=== PATIENT | female | born 1960 | race Caucasian/White ===

== ENCOUNTER 2018-12-07 00:40 | Observation (INO) ==
[2018-12-07] MEDS ORDERED: Morphine Sulfate 2 MG/ML SYRINGE IVP ONE (01:32)
[2018-12-07] MEDS ORDERED: Ondansetron 4 MG/2 ML VIAL IVP ONE ×2 (01:32→04:45)
[2018-12-07] MEDS ORDERED: Ipratropium/Albuterol Neb 3 ML IH ONE (01:33)
[2018-12-07] MEDS ORDERED: 0.9 % Sodium Chloride 1,000 ML IVC ONE (02:23)
[2018-12-07] MEDS ORDERED: 0.9 % Sodium Chloride 1,000 ML ONE (02:25)
[2018-12-07 02:33] LABS: Basophils # 0.1 K/mcL (0.0-0.2); Basophils % 0.5 %; Eosinophils # 0.1 K/mcL (0.0-0.6); Eosinophils % 0.4 %; Hematocrit 40.8 % (35.3-44.9); Hemoglobin 13.9 g/dL (11.5-15.4); Immature Granulocytes % 0.6 % (0-4); Lymphocytes # 1.9 K/mcL (0.6-4.6); Lymphocytes % 12.9 %; Mean Corpuscular HGB Conc 34.1 g/dL (31.6-35.5); Mean Corpuscular Hemoglobin 31.4 pg (28.0-33.3); Mean Corpuscular Volume 92.3 fL (83.0-100.0); Mean Platelet Volume 10.7 fL (9.4-12.4); Monocytes # 0.9 K/mcL (0.0-1.3); Monocytes % 6.2 %; Platelet Count 298 K/mcL (140-400); Red Blood Count 4.42 M/mcL (3.82-4.97); Red Cell Distribution Width 11.9 % (11.5-14.5); Segmented Neutrophils % 79.4 %; White Blood Count 15.1 K/mcL (4.3-11.1)
[2018-12-07 02:45] LABS: Alanine Aminotransferase 14 Units/L (7-52); Albumin 4.7 g/dL (3.5-5.7); Albumin/Globulin Ratio 1.8 (1.1-2.2); Alkaline Phosphatase 50 Units/L (34-104); Aspartate Amino Transferase 18 Units/L (13-39); BUN/Creatinine Ratio 11 (6-26); Bilirubin,Direct 0.1 mg/dL (0.0-0.2); Bilirubin,Indirect 0.3 mg/dL (0.0-1.2); Bilirubin,Total 0.4 mg/dL (0.3-1.0); Blood Urea Nitrogen 10 mg/dL (6-20); Calcium 10.2 mg/dL (8.6-10.3); Carbon Dioxide 24 mEq/L (23-29); Chloride 99 mEq/L (98-107); Globulin 2.6 g/dL (2.4-3.5); Glucose 115 mg/dL (70-105); Lipase 5 Units/L (11-82); Osmolality,Calculated 274 (280-300); Potassium 3.5 mEq/L (3.5-5.1); Sodium 132 mEq/L (136-145); Total Protein 7.3 g/dL (6.4-8.9); eGFR For African Americans > 60 (> 60); eGFR For Non-African Americans > 60 (> 60)
--- NOTE | 2018-12-07 03:22 | Emergency Department Note ---
Disposition Clinical Impression: Constipation Qualifiers: Constipation type: unspecified constipation type Qualified Code(s): K59.00 - Constipation, unspecified Nausea and vomiting Qualifiers: Vomiting type: unspecified Vomiting Intractability: non-intractable Qualified Code(s): R11.2 - Nausea with vomiting, unspecified Disposition: Admitted As Inpatient Condition: Fair Referrals: Fide Painting MD [Primary Care Provider] - Forms: ED Satisfaction Letter, Work/School Release Time of Disposition: 06:27 General Adult HPI - General Chief complaint: ED Abdominal Pain Stated complaint: abd pain/jordan/vomited x2 Time Seen by Provider: 12/07/18 00:57 Source: patient, EMS Mode of arrival: EMS Limitations: no limitations Nursing Notes Reviewed: Yes Vital Signs Reviewed: Yes - History of Present Illness HPI Narrative: Patient is a 58-year-old female with past medical history of asthma, atrial fibrillation, COPD, and cholecystectomy presents for evaluation of right upper quadrant pain that started earlier yesterday evening she describes as a sharp stabbing pain that is intermittent associated with 2 episodes of bilious emesis. Just admits to constipation since 4 days ago. Pain Scale: 5 - Related Data Home Medications Medication Instructions Recorded Confirmed Albuterol Sulfate [Proair Hfa] 2 puff IH Q4H PRN 05/26/15 12/07/18 BuPROPion SR (12 HR) [Wellbutrin 150 mg PO BID 05/26/15 12/07/18 SR] Fluticasone Propionate Nasal 2 spray NS BID 05/26/15 12/07/18 [Flonase] Fluticasone/Salmeterol [Advair 1 puff IH BID 05/26/15 12/07/18 250-50 Diskus] Guaifenesin [Mucinex] 600 mg PO BID PRN 05/26/15 12/07/18 Loratadine [Allergy Relief] 10 mg PO DAILY 05/26/15 12/07/18 Montelukast [Singulair] 10 mg PO QPM 05/26/15 12/07/18 Nabumetone [Relafen] 500 mg PO BID 05/26/15 12/07/18 Ondansetron HCl [Zofran] 4 - 8 mg PO Q8H PRN 05/26/15 12/07/18 Oxygen 3 l .ROUTE AD 05/26/15 12/07/18 Pantoprazole Sodium [Protonix] 40 mg PO DAILY 05/26/15 12/07/18 Roflumilast [Daliresp] 500 mcg PO DAILY 05/26/15 12/07/18 Tiotropium [Spiriva] 1 cap IH DAILY 05/26/15 12/07/18 Calcium Carbonate [Calcium] 600 mg PO BID 06/16/16 12/07/18 Linaclotide [Linzess] 145 mcg PO DAILY 06/16/16 12/07/18 Allergies Allergy/AdvReac Type Severity Reaction Status Date / Time morphine AdvReac Hypotension Verified 12/07/18 03:23 All systems ED: reviewed and negative except as stated. Review of Systems: As Per HPI Constitutional: Denies: fever, chills Cardiovascular: Denies: chest pain, palpitations Respiratory: Denies: cough, dyspnea Gastrointestinal: Reports: abdominal pain, nausea, vomiting, constipation. Denies: diarrhea, hematemesis, melena, hematochezia Genitourinary: Denies: urgency, dysuria, frequency Musculoskeletal: Denies: back pain, neck pain Past Medical History - Past Medical History Attestation: Yes The following information was validated with the patient. Medical history: Reports: asthma, atrial fibrillation, cancer, COPD, GERD, migraine, other Surgical history: Reports: cholecystectomy Psychiatric history: Reports: no psych history - Social History Smoking Status: Former smoker Smokeless Tobacco Status: No Alcohol use: Reports: none Drug use: Reports: none Physical Exam - General Limitations: no limitations General appearance: alert - Head Head exam: atraumatic, normocephalic, normal inspection - Eye Eye exam: Present: normal appearance, PERRL, EOMI - ENT ENT exam: normal exam, normal oropharynx, mucous membranes moist - Neck Neck exam: Present: normal inspection, full ROM, trachea midline - Chest Chest inspection: Present: normal inspection, symmetric chest wall rise - Respiratory Respiratory exam: Present: normal lung sounds bilaterally - Cardiovascular Cardiovascular exam: Present: regular rate, normal rhythm, normal heart sounds - Abdominal Exam Abdominal exam: Present: soft, tenderness, normal bowel sounds. Absent: distention, guarding, rebound, rigidity Abdominal tenderness: Present: RUQ - Extremities Exam Extremities exam: Present: normal inspection, full ROM. Absent: tenderness, pedal edema - Back Exam Back exam: Present: normal inspection, full ROM. Absent: tenderness - Neurological Exam Neurological exam: Present: alert, oriented X3 - Psychiatric Psychiatric exam: Present: normal affect, normal mood - Skin Skin exam: Present: warm, dry, intact, normal color Course Course Narrative: Patient presented for evaluation of emesis the setting of right upper quadrant pain. She does have a history of cholecystectomy sinuses I suspect this is gallbladder related at this time. She will undergo evaluation with a CT scan of abdomen and pelvis and treated for symptoms. - Reevaluation(s) Reevaluation #1: Patient had an adverse reaction to morphine which she was bradycardic and hypotensive and responded to fluids. CT scan is remarkable for large amount of stool which I suspect is causing the patient's symptoms. She will undergo an enema in effort to treat her large stool burden. Reevaluation #2: Patient had no relief of symptoms with enema and no release of stool. She continues to have intermittent right upper quadrant abdominal pain as well as intractable nausea and vomiting. She decision-making was utilized the patient states that she knows her constipation symptoms well and states that typically she would go home continue MiraLAX are she feels it this case is more intense than usual and she feels more comfortable coming in the hospital she feels that if she goes home she will undergo coming back either secondary to the pain are secondary to the constipation. Discussed with the patient that since she does not feel comfortable going home she will be admitted the hospital. I did discuss this with Dr. Kaur and he agreed to accept the patient. Vital Signs Temperature 97.9 F 12/07/18 00:53 Pulse Rate 84 12/07/18 00:53 Respiratory Rate 20 12/07/18 00:53 Blood Pressure 150/103 12/07/18 00:53 O2 Sat by Pulse Oximetry 97 12/07/18 00:53 Temperature 97.9 F 12/07/18 00:56 Pulse Rate 60 12/07/18 03:55 Respiratory Rate 20 12/07/18 03:55 Blood Pressure 120/75 12/07/18 03:55 O2 Sat by Pulse Oximetry 97 12/07/18 03:55 Oxygen Delivery Oxygen Delivery Room Air Medical Decision Making - Medical Records Medical records reviewed: Yes I reviewed the patient's medical records. - Lab Data Lab results reviewed: Yes I reviewed the patient's lab results. Result diagrams: 12/07/18 02:05 12/07/18 02:05 Lab Results 12/07/18 12/07/18 12/07/18 Range/Units 02:05 02:05 04:10 WBC 15.1 H (4.3-11.1) K/mcL RBC 4.42 (3.82-4.97) M/mcL Hgb 13.9 (11.5-15.4) g/dL Hct 40.8 (35.3-44.9) % MCV 92.3 (83.0-100.0) fL MCH 31.4 (28.0-33.3) pg MCHC 34.1 (31.6-35.5) g/dL RDW 11.9 (11.5-14.5) % Plt Count 298 (140-400) K/mcL MPV 10.7 (9.4-12.4) fL Immature Gran % 0.6 (0-4) % Seg Neutrophils % 79.4 % Lymphocytes % 12.9 % Monocytes % 6.2 % Eosinophils % 0.4 % Basophils % 0.5 % Neutrophils # 12.0 H (1.6-8.9) K/mcL Lymphocytes # 1.9 (0.6-4.6) K/mcL Monocytes # 0.9 (0.0-1.3) K/mcL Eosinophils # 0.1 (0.0-0.6) K/mcL Basophils # 0.1 (0.0-0.2) K/mcL Sodium 132 L (136-145) mEq/L Potassium 3.5 (3.5-5.1) mEq/L Chloride 99 (98-107) mEq/L Carbon Dioxide 24 (23-29) mEq/L BUN 10 (6-20) mg/dL Creatinine 0.91 (0.60-1.20) mg/dL Est GFR ( Amer) > 60 (> 60) Est GFR (Non-Af Amer) > 60 (> 60) BUN/Creatinine Ratio 11 (6-26) Glucose 115 H (70-105) mg/dL Calculated Osmolality 274 L (280-300) Calcium 10.2 (8.6-10.3) mg/dL Total Bilirubin 0.4 (0.3-1.0) mg/dL Direct Bilirubin 0.1 (0.0-0.2) mg/dL Indirect Bilirubin 0.3 (0.0-1.2) mg/dL AST 18 (13-39) Units/L ALT 14 (7-52) Units/L Alkaline Phosphatase 50 (34-104) Units/L Troponin I < 0.03 (< 0.04) ng/mL Serum Total Protein 7.3 (6.4-8.9) g/dL Albumin 4.7 (3.5-5.7) g/dL Globulin 2.6 (2.4-3.5) g/dL Albumin/Globulin Ratio 1.8 (1.1-2.2) Lipase 5 L (11-82) Units/L Urine Color Yellow (Yellow) Urine Clarity Clear (Clear) Urine pH 6.5 (5.0-8.0) pH Units Ur Specific [place] 1.022 (1.010-1.025) Urine Protein 100 H (Neg-Trace) mg/dL Urine Glucose (UA) Normal (Normal) mg/dL Urine Ketones 15 H (Negative) mg/dL Urine Blood Negative (Negative) Urine Nitrite Negative (Negative) Urine Bilirubin Negative (Negative) Urine Urobilinogen Normal (Normal) mg/dL Ur Leukocyte Esterase Small H (Negative) Urine Microscopic RBC 3-5 H (0-3) per hpf Urine Microscopic WBC 3-5 H (0-3) per hpf Ur Squamous Epith Cells Many H (None-Few) per lpf Urine Bacteria None Seen (None-Few) per hpf Hyaline Casts None Seen (None-Few) per lpf Ur Culture Indicated? YES A (NO) - Radiology Data Radiology results reviewed: Yes I reviewed the patient's radiology results. Abdomen/Pelvis CT 12/07/18 01:32 IMPRESSION: Diverticulosis without scan evidence for diverticulitis or other acute process. D/ / Marquez Gracia MD / Marquez Gracia MD Interpreting Provider: Marquez Gracia MD Chest X-Ray 12/07/18 01:33 IMPRESSION: No acute disease. D/ / Marquez Gracia MD / Marquez Gracia MD Interpreting Provider: Marquez Gracia MD - EKG Data EKG #1 EKG attestation: Yes I reviewed and interpreted this EKG. EKG results narrative: EKG done at 00:53 shows sinus rhythm at a rate of 79 bpm. Normal axis. Intervals within normal limits, except prolonged RI interval. No signs of ST elevation, ST depression or Q waves present.
[2018-12-07 03:29] LABS: Troponin I < 0.03 ng/mL (< 0.04)
--- NOTE | 2018-12-07 04:11 | Emergency Department Note ---
Disposition Clinical Impression: Constipation Qualifiers: Constipation type: unspecified constipation type Qualified Code(s): K59.00 - Constipation, unspecified Nausea and vomiting Qualifiers: Vomiting type: unspecified Vomiting Intractability: non-intractable Qualified Code(s): R11.2 - Nausea with vomiting, unspecified Disposition: Admitted As Inpatient Condition: Fair Time of Disposition: 06:30 General Adult HPI - General Chief complaint: ED Abdominal Pain Stated complaint: abd pain/jordan/vomited x2 Time Seen by Provider: 12/07/18 00:57 Source: patient, EMS Mode of arrival: EMS Limitations: no limitations Nursing Notes Reviewed: Yes Vital Signs Reviewed: Yes - History of Present Illness Pain Scale: 5 - Related Data Home Medications Medication Instructions Recorded Confirmed Albuterol Sulfate [Proair Hfa] 2 puff IH Q4H PRN 05/26/15 12/07/18 BuPROPion SR (12 HR) [Wellbutrin 150 mg PO BID 05/26/15 12/07/18 SR] Fluticasone Propionate Nasal 2 spray NS BID 05/26/15 12/07/18 [Flonase] Fluticasone/Salmeterol [Advair 1 puff IH BID 05/26/15 12/07/18 250-50 Diskus] Guaifenesin [Mucinex] 600 mg PO BID PRN 05/26/15 12/07/18 Loratadine [Allergy Relief] 10 mg PO DAILY 05/26/15 12/07/18 Montelukast [Singulair] 10 mg PO QPM 05/26/15 12/07/18 Nabumetone [Relafen] 500 mg PO BID 05/26/15 12/07/18 Ondansetron HCl [Zofran] 4 - 8 mg PO Q8H PRN 05/26/15 12/07/18 Oxygen 3 l .ROUTE AD 05/26/15 12/07/18 Pantoprazole Sodium [Protonix] 40 mg PO DAILY 05/26/15 12/07/18 Roflumilast [Daliresp] 500 mcg PO DAILY 05/26/15 12/07/18 Tiotropium [Spiriva] 1 cap IH DAILY 05/26/15 12/07/18 Calcium Carbonate [Calcium] 600 mg PO BID 06/16/16 12/07/18 Linaclotide [Linzess] 145 mcg PO DAILY 06/16/16 12/07/18 Allergies Allergy/AdvReac Type Severity Reaction Status Date / Time morphine AdvReac Hypotension Verified 12/07/18 03:23 Constitutional: Denies: fever, chills Cardiovascular: Denies: chest pain, palpitations Respiratory: Denies: cough, dyspnea Gastrointestinal: Reports: abdominal pain, nausea, vomiting, constipation. Denies: diarrhea, hematemesis, melena, hematochezia Genitourinary: Denies: urgency, dysuria, frequency Musculoskeletal: Denies: back pain, neck pain Past Medical History - Past Medical History Medical history: Reports: asthma, atrial fibrillation, cancer, COPD, GERD, migraine, other Surgical history: Reports: cholecystectomy Psychiatric history: Reports: no psych history - Social History Smoking Status: Former smoker Smokeless Tobacco Status: No Alcohol use: Reports: none Drug use: Reports: none Physical Exam - General Limitations: no limitations General appearance: alert Course Vital Signs Temperature 97.9 F 12/07/18 00:53 Pulse Rate 84 12/07/18 00:53 Respiratory Rate 20 12/07/18 00:53 Blood Pressure 150/103 12/07/18 00:53 O2 Sat by Pulse Oximetry 97 12/07/18 00:53 Temperature 97.9 F 12/07/18 00:56 Pulse Rate 60 12/07/18 03:55 Respiratory Rate 20 12/07/18 03:55 Blood Pressure 120/75 12/07/18 03:55 O2 Sat by Pulse Oximetry 97 12/07/18 03:55 Oxygen Delivery Oxygen Delivery Room Air Medical Decision Making - Medical Records Medical records reviewed: Yes I reviewed the patient's medical records. - Lab Data Lab results reviewed: Yes I reviewed the patient's lab results. Result diagrams: 12/07/18 02:05 12/07/18 02:05 Lab Results 12/07/18 12/07/18 12/07/18 Range/Units 02:05 02:05 04:10 WBC 15.1 H (4.3-11.1) K/mcL RBC 4.42 (3.82-4.97) M/mcL Hgb 13.9 (11.5-15.4) g/dL Hct 40.8 (35.3-44.9) % MCV 92.3 (83.0-100.0) fL MCH 31.4 (28.0-33.3) pg MCHC 34.1 (31.6-35.5) g/dL RDW 11.9 (11.5-14.5) % Plt Count 298 (140-400) K/mcL MPV 10.7 (9.4-12.4) fL Immature Gran % 0.6 (0-4) % Seg Neutrophils % 79.4 % Lymphocytes % 12.9 % Monocytes % 6.2 % Eosinophils % 0.4 % Basophils % 0.5 % Neutrophils # 12.0 H (1.6-8.9) K/mcL Lymphocytes # 1.9 (0.6-4.6) K/mcL Monocytes # 0.9 (0.0-1.3) K/mcL Eosinophils # 0.1 (0.0-0.6) K/mcL Basophils # 0.1 (0.0-0.2) K/mcL Sodium 132 L (136-145) mEq/L Potassium 3.5 (3.5-5.1) mEq/L Chloride 99 (98-107) mEq/L Carbon Dioxide 24 (23-29) mEq/L BUN 10 (6-20) mg/dL Creatinine 0.91 (0.60-1.20) mg/dL Est GFR ( Amer) > 60 (> 60) Est GFR (Non-Af Amer) > 60 (> 60) BUN/Creatinine Ratio 11 (6-26) Glucose 115 H (70-105) mg/dL Calculated Osmolality 274 L (280-300) Calcium 10.2 (8.6-10.3) mg/dL Total Bilirubin 0.4 (0.3-1.0) mg/dL Direct Bilirubin 0.1 (0.0-0.2) mg/dL Indirect Bilirubin 0.3 (0.0-1.2) mg/dL AST 18 (13-39) Units/L ALT 14 (7-52) Units/L Alkaline Phosphatase 50 (34-104) Units/L Troponin I < 0.03 (< 0.04) ng/mL Serum Total Protein 7.3 (6.4-8.9) g/dL Albumin 4.7 (3.5-5.7) g/dL Globulin 2.6 (2.4-3.5) g/dL Albumin/Globulin Ratio 1.8 (1.1-2.2) Lipase 5 L (11-82) Units/L Urine Color Yellow (Yellow) Urine Clarity Clear (Clear) Urine pH 6.5 (5.0-8.0) pH Units Ur Specific [place] 1.022 (1.010-1.025) Urine Protein 100 H (Neg-Trace) mg/dL Urine Glucose (UA) Normal (Normal) mg/dL Urine Ketones 15 H (Negative) mg/dL Urine Blood Negative (Negative) Urine Nitrite Negative (Negative) Urine Bilirubin Negative (Negative) Urine Urobilinogen Normal (Normal) mg/dL Ur Leukocyte Esterase Small H (Negative) Urine Microscopic RBC 3-5 H (0-3) per hpf Urine Microscopic WBC 3-5 H (0-3) per hpf Ur Squamous Epith Cells Many H (None-Few) per lpf Urine Bacteria None Seen (None-Few) per hpf Hyaline Casts None Seen (None-Few) per lpf Ur Culture Indicated? YES A (NO) - Radiology Data Radiology results reviewed: Yes I reviewed the patient's radiology results. Abdomen/Pelvis CT 12/07/18 01:32 IMPRESSION: Diverticulosis without scan evidence for diverticulitis or other acute process. D/ / Marquez Gracia MD / Marquez Gracia MD Interpreting Provider: Marquez Gracia MD Chest X-Ray 12/07/18 01:33 IMPRESSION: No acute disease. D/ / Marquez Gracia MD / Marquez Gracia MD Interpreting Provider: Marquez Gracia MD - EKG Data EKG #1 EKG attestation: Yes I reviewed and interpreted this EKG. EKG results narrative: EKG shows a sinus rhythm with first-degree AV block. CO interval 234. Ventricular rate 79. No significant ST segment elevation or depression. No arrhythmia or ectopy. Attestation Statement - Attestation Attestation: I, Eduardo Diallo MD, personally evaluated this patient and discussed their management with the resident physician. I reviewed the resident's note and agree with the documented findings, medical decision making, and plan of care. I reviewed the residents documentation and agree with the residents assessment and plan of care. I have personally had face to face time with the patient. I personally supervised and was present for the brannon/critical portions of the following procedures completed by the resident: EKG interpretation. 58-year-old female presents to the emergency department with a complaint of right upper quadrant crampy abdominal pain which started around 2 or 3 PM today. The pain lasted a while and then resolved. The pain then returned while she was cooking dinner this evening. She states the pain waxes and wanes in intensity. No radiation. She did have some nausea and about 2 episodes of vomiting. No diarrhea. She does complain of constipation. She states that she has had similar pains in the past due to constipation but not this severe. She has had her gallbladder out previously. On examination patient is a well-developed thin female in mild distress. She appears to be in moderate discomfort. She is alert and oriented 3. There is no cyanosis or diaphoresis. Breath sounds are clear and equal bilaterally. Heart regular rate and rhythm. Abdomen is soft with mild right upper quadrant tenderness. No guarding or rebound tenderness. No CVA tenderness. No organomegaly or masses. No tympany or distention. Labs reviewed. CT the abdomen and pelvis shows no acute abnormality. There is a large amount of stool throughout the colon. EKG shows a sinus rhythm with first-degree AV block. CO interval 234. Ventricular rate 79. No significant ST segment elevation or depression. No arrhythmia or ectopy. Patient received Zofran IV and morphine IV. She did have a reaction to the morphine and became bradycardic and hypotensive. She became profusely diaphoretic and extremely nauseated. She was given a bolus of normal saline with resolution of the symptoms. Patient received an enema with no results. She continued to have persistent abdominal pain and nausea despite medications. She also has additional episode of vomiting in the emergency department. The hospitalist, Dr. Kaur, was consulted and accepted admission of the patient for intractable abdominal pain and nausea and vomiting secondary to constipation.
[2018-12-07 04:24] LABS: Bilirubin,Urine Negative (Negative); Blood,Urine Negative (Negative); Clarity,Urine Clear (Clear); Color,Urine Yellow (Yellow); Glucose,Urine (UA) Normal (Normal); Ketones,Urine 15 mg/dL (Negative); Leukocyte Esterase,Urine Small (Negative); Nitrite,Urine Negative (Negative); PH,Urine 6.5 pH Units (5.0-8.0); Protein,Urine 100 mg/dL (Neg-Trace); Specific Gravity,Urine 1.022 (1.010-1.025); Urobilinogen,Urine Normal (Normal)
[2018-12-07 04:26] LABS: Bacteria,Urine None Seen per hpf (None-Few); Hyaline Casts,Urine None Seen per lpf (None-Few); Squamous Epithelial Cell,Urine Many per lpf (None-Few)
[2018-12-07] MEDS ORDERED: Naloxone 0.4 MG/ML INJ IVP PRN (07:56)
[2018-12-07] MEDS ORDERED: Ketorolac 15 MG/ML VIAL IVP PRN (07:56)
[2018-12-07] MEDS ORDERED: traMADol 50 MG TABLET PO PRN (07:56)
[2018-12-07] MEDS ORDERED: Acetaminophen 325 MG TABLET PO PRN (07:56)
[2018-12-07] MEDS ORDERED: NON-FORMULARY MEDICATION 1 EACH EACH (Oxygen 3 L) SCH (08:00)
--- NOTE | 2018-12-07 08:04 | Internal Med History&Physical ---
Date of Encounter: 12/07/18 Time of Encounter: 08:02 Internal Medicine - H&P: HPI History of present illness: Ms. Munoz is a 58 year old female Past Med Surg Social Fam HX - Past Medical History Medical history: asthma, atrial fibrillation, cancer, COPD, GERD, migraine, other Additional medical history: skin cancer Psychiatric history: no psych history - Past Surgical History Surgical History: cholecystectomy Additional surgical history: heart ablation,tubal, chest tubes, lung biopsy x2 benign , breast biopsies x2 benign, skin cancer removed from back - Social History Smoking Status: Former smoker Smokeless Tobacco Status: No Alcohol use: none Drug use: none - Family History Mother Living Status: Still Living Hx Family Cardiac Disorders: No Hx Family Respiratory Disorders: No Hx Family Cancer: Yes (breast) Hx Family GI Disorders: No Hx Family Endocrine Disorder: No Hx Family Neuromuscular Disorders: No Hx Family Neurologic Disorders: No Hx Family HEENT Disorders: No Hx Family Autoimmune Disorders: No Internal Medicine - H&P: Meds Albuterol Sulfate [Proair Hfa] 2 puff IH Q4H PRN 05/26/15 [History] BuPROPion SR (12 HR) [Wellbutrin SR] 150 mg PO BID 05/26/15 [History] Fluticasone Propionate Nasal [Flonase] 2 spray NS BID 05/26/15 [History] Fluticasone/Salmeterol [Advair 250-50 Diskus] 1 puff IH BID 05/26/15 [History] Guaifenesin [Mucinex] 600 mg PO BID PRN 05/26/15 [History] Loratadine [Allergy Relief] 10 mg PO DAILY 05/26/15 [History] Montelukast [Singulair] 10 mg PO QPM 05/26/15 [History] Nabumetone [Relafen] 500 mg PO BID 05/26/15 [History] Ondansetron HCl [Zofran] 4 - 8 mg PO Q8H PRN 05/26/15 [History] Oxygen 3 l .ROUTE AD 05/26/15 [History] Pantoprazole Sodium [Protonix] 40 mg PO DAILY 05/26/15 [History] Roflumilast [Daliresp] 500 mcg PO DAILY 05/26/15 [History] Tiotropium [Spiriva] 1 cap IH DAILY 05/26/15 [History] Calcium Carbonate [Calcium] 600 mg PO BID 06/16/16 [History] Linaclotide [Linzess] 145 mcg PO DAILY 06/16/16 [History] Allergy/AdvReac Type Severity Reaction Status Date / Time morphine AdvReac Hypotension Verified 12/07/18 03:23 All Systems PM: A 10-system review of systems was performed and is negative for pertinent findings except as documented above in the HPI. - Constitutional Vitals: Temp Pulse Resp BP Pulse Ox 97.9 F 60 20 106/67 97 12/07/18 00:56 12/07/18 03:55 12/07/18 06:58 12/07/18 06:58 12/07/18 03:55 Exam: . - Head Head exam: Present: atraumatic, normocephalic - Eye Eye exam: Present: PERRL, conjuntiva pink, sclera anicteric Pupils: Present: PERRL - ENT ENT exam: Present: mucous membranes dry - Neck Neck exam general surgery: Present: supple, trachea midline. Absent: lymphadenopathy - Respiratory Respiratory exam: Present: CTAB. Absent: accessory muscle use, rales, rhonchi, wheezes - Cardiovascular Cardiovascular exam: Present: RRR, +S1, +S2. Absent: diastolic murmur, gallop, rubs, systolic murmur - GI/Abdominal GI/Abdominal exam: Present: normal bowel sounds, soft, tenderness, no peritoneal signs. Absent: distended, guarding, hyperactive bowel sounds, hypoactive bowel sounds, pulsatile mass, rebound, rigid, splenomegaly - Extremities Exam Extremities exam: Present: warm, radial pulses palpable and symmetrical. Absent: calf tenderness, cyanotic, pedal edema - Neurological Exam Neurological exam: Present: CN II-XII intact, oriented X3, no focal deficits. Absent: pronater drift, facial droop, speech deficit - Skin Skin exam: Present: dry, intact Internal Med - H&P Results - Labs CBC & Chem 7: 12/07/18 02:05 12/07/18 02:05 Labs: Short CBC 12/07/18 Range/Units 02:05 WBC 15.1 H (4.3-11.1) K/mcL Hgb 13.9 (11.5-15.4) g/dL Hct 40.8 (35.3-44.9) % Plt Count 298 (140-400) K/mcL Neutrophils # 12.0 H (1.6-8.9) K/mcL BMP 12/07/18 02:05 Sodium 132 L Potassium 3.5 Chloride 99 Carbon Dioxide 24 BUN 10 Creatinine 0.91 Glucose 115 H Calcium 10.2 Cardiac Enzymes 12/07/18 Range/Units 02:05 Troponin I < 0.03 (< 0.04) ng/mL Liver Function 12/07/18 Range/Units 02:05 Total Bilirubin 0.4 (0.3-1.0) mg/dL Direct Bilirubin 0.1 (0.0-0.2) mg/dL AST 18 (13-39) Units/L ALT 14 (7-52) Units/L Alkaline Phosphatase 50 (34-104) Units/L Albumin 4.7 (3.5-5.7) g/dL Urine 12/07/18 Range/Units 04:10 Urine Color Yellow (Yellow) Urine Clarity Clear (Clear) Urine pH 6.5 (5.0-8.0) pH Units Ur Specific [place] 1.022 (1.010-1.025) Urine Protein 100 H (Neg-Trace) mg/dL Urine Glucose (UA) Normal (Normal) mg/dL - Impressions ITS Impressions Abdomen/Pelvis CT 12/07/18 01:32 IMPRESSION: Diverticulosis without scan evidence for diverticulitis or other acute process. D/ / Marquez Gracia MD / Marquez Gracia MD Interpreting Provider: Marquez Gracia MD Chest X-Ray 12/07/18 01:33 IMPRESSION: No acute disease. D/ / Marquez Gracia MD / Marquez Gracia MD Interpreting Provider: Marquez Gracia MD - Assessment and Plan (1) Nausea and vomiting Current Visit: Yes Status: Acute Assessment and plan: CT scan with no acute findings, showed diverticulosis without diverticulitis but otherwise negative. Known history of IBS with constipation on several medications for this. A one time enema was ineffective at making bowel movement. Patient appears dehydrated and land would benefit from continuing IV fluid hydration. Enema in ED was ineffective for BM - Continue IV fluids - Will also need IV anti-emetics Zofran and phenergan as she cannot tolerate PO. - Trial of Milk and Molassess enema. Qualifiers: Vomiting type: unspecified Vomiting Intractability: non-intractable Qualified Code(s): R11.2 - Nausea with vomiting, unspecified (2) Irritable bowel syndrome (IBS) Current Visit: Yes Status: Acute Assessment and plan: Resume home medications. Qualifiers: Irritable bowel syndrome type: with constipation Qualified Code(s): K58.1 - Irritable bowel syndrome with constipation (3) COPD (chronic obstructive pulmonary disease) Current Visit: Yes Status: Acute Assessment and plan: Resume home medication inhalers. Qualifiers: COPD type: unspecified COPD Qualified Code(s): J44.9 - Chronic obstructive pulmonary disease, unspecified (4) Atrial fibrillation Current Visit: Yes Status: Acute Assessment and plan: Documented on EMR. No rate limiting medication or anticoagulation is listed on med rec currently. Qualifiers: Atrial fibrillation type: unspecified Qualified Code(s): I48.91 - Unspecified atrial fibrillation (5) Constipation Current Visit: Yes Status: Acute Assessment and plan: Plan as above. Qualifiers: Constipation type: unspecified constipation type Qualified Code(s): K59.00 - Constipation, unspecified (6) DVT prophylaxis Current Visit: Yes Status: Acute Assessment and plan: SQ heparin (7) Dehydration Current Visit: Yes Status: Acute Assessment and plan: Plan as above. - Time Spent With Patient Total time spent is greater than 50% in coordination of care (as documented) at patient's floor/unit and/or counseling patient:
[2018-12-07] MEDS ORDERED: Sennosides/Docusate Sodium TABLET PO ONE (08:06)
[2018-12-07] MEDS ORDERED: Ipratropium/Albuterol Neb 3 ML IH PRN (08:08)
[2018-12-07] MEDS ORDERED: Milk and Molasses Enema 200 ML RC ONE (08:22)
[2018-12-07] MEDS ORDERED: *HR* Promethazine 25 MG/ML VIAL IVP PRN (08:23)
[2018-12-07] MEDS: Loratadine 10 MG TABLET PO SCH (09:54)
[2018-12-07] MEDS: BuPROPion SR (12 HR) 150 MG TABLET PO SCH ×2 (09:54→21:31)
[2018-12-07] MEDS: 0.9 % Sodium Chloride 1,000 ML IVC SCH ×2 (09:54→17:40)
[2018-12-07] MEDS: Linaclotide [Linzess] 145 MCG PO SCH (09:55)
[2018-12-07] MEDS: Fluticasone Propionate Nasal 50 MCG/SPRAY BOTTLE NS SCH ×2 (09:55→21:31)
[2018-12-07] MEDS: Roflumilast [Daliresp] 500 MCG PO SCH (09:55)
[2018-12-07] MEDS: Tiotropium 18 MCG inhalation IH SCH (10:56)
[2018-12-07] MEDS: Budesonide/Formoterol 80/4.5 MDI IH SCH ×2 (10:56→20:16)
[2018-12-07] MEDS: Ondansetron 4 MG/2 ML VIAL IVP PRN (14:47)
[2018-12-07] MEDS: Sennosides/Docusate Sodium TABLET PO PRN (17:40)
[2018-12-07] MEDS: *HR* Heparin 5,000 UNIT/ML VIAL SQ SCH (17:42)
--- NOTE | 2018-12-08 00:27 | Electrocardiograph Report ---
[employer] Test Date: 2018-12-07 Pat Name: Miranda Munoz Department: EXAM9 Room: 3A53 Gender: F [employer]: : 1960 Requested By: Corby Oneal Order Number: [id number] Reading MD: Melo Newsome Measurements Intervals [place] Rate: 79 P: 150 IA: 234 QRS: 87 QRSD: 95 T: 28 QT: 374 QTc: 429 Interpretive Statements Sinus or ectopic atrial rhythm Prolonged [place] interval Anteroseptal infarct, old Electronically Signed On 12-08-2018 0:25:29 EDT by Melo Newsome
[2018-12-08 03:06] LABS: BUN/Creatinine Ratio 7 (6-26); Blood Urea Nitrogen 5 mg/dL (6-20); Carbon Dioxide 21 mEq/L (23-29); Chloride 110 mEq/L (98-107); Glucose 95 mg/dL (70-105); Osmolality,Calculated 283 (280-300); Potassium 3.7 mEq/L (3.5-5.1); Sodium 138 mEq/L (136-145); eGFR For African Americans > 60 (> 60); eGFR For Non-African Americans > 60 (> 60)
[2018-12-08 04:48] LABS: Basophils # 0.1 K/mcL (0.0-0.2); Eosinophils # 0.1 K/mcL (0.0-0.6); Eosinophils % 1.5 %; Hematocrit 33.1 % (35.3-44.9); Hemoglobin 10.8 g/dL (11.5-15.4); Immature Granulocytes % 0.2 % (0-4); Lymphocytes # 2.2 K/mcL (0.6-4.6); Lymphocytes % 36.8 %; Mean Corpuscular HGB Conc 32.6 g/dL (31.6-35.5); Mean Corpuscular Hemoglobin 31.2 pg (28.0-33.3); Mean Corpuscular Volume 95.7 fL (83.0-100.0); Mean Platelet Volume 10.9 fL (9.4-12.4); Monocytes # 0.4 K/mcL (0.0-1.3); Monocytes % 6.7 %; Neutrophils # 3.2 K/mcL (1.6-8.9); Platelet Count 213 K/mcL (140-400); Red Blood Count 3.46 M/mcL (3.82-4.97); Red Cell Distribution Width 12.4 % (11.5-14.5); Segmented Neutrophils % 53.8 %
[2018-12-08] MEDS: *HR* Heparin 5,000 UNIT/ML VIAL SQ SCH (05:32)
[2018-12-08 07:03] VITALS: BP 136/78
[2018-12-08] MEDS: BuPROPion SR (12 HR) 150 MG TABLET PO SCH (07:43)
[2018-12-08] MEDS: Loratadine 10 MG TABLET PO SCH (07:43)
[2018-12-08] MEDS: Sennosides/Docusate Sodium TABLET PO PRN (07:43)
[2018-12-08] MEDS: Linaclotide [Linzess] 145 MCG PO SCH (07:44)
[2018-12-08] MEDS: Roflumilast [Daliresp] 500 MCG PO SCH (07:44)
[2018-12-08] MEDS: Fluticasone Propionate Nasal 50 MCG/SPRAY BOTTLE NS SCH (07:44)
[2018-12-08] MEDS: Ondansetron 4 MG/2 ML VIAL IVP PRN (07:46)
[2018-12-08] MEDS: Tiotropium 18 MCG inhalation IH SCH (08:05)
[2018-12-08] MEDS: Budesonide/Formoterol 80/4.5 MDI IH SCH (08:05)
--- NOTE | 2018-12-08 08:11 | Discharge Summary ---
Orders not resulted at time of discharge: Pending orders 12/07/18 04:10 Culture,Urine [RM] Stat Date of Encounter: 12/08/18 Time of Encounter: 08:09 - Discharge Diagnosis (1) Constipation Priority: Primary Status: Acute Qualifiers: Constipation type: unspecified constipation type Qualified Code(s): K59.00 - Constipation, unspecified (2) Nausea and vomiting Priority: Primary Status: Acute Qualifiers: Vomiting type: unspecified Vomiting Intractability: non-intractable Qualified Code(s): R11.2 - Nausea with vomiting, unspecified (3) Irritable bowel syndrome (IBS) Priority: Secondary Status: Acute Qualifiers: Irritable bowel syndrome type: with constipation Qualified Code(s): K58.1 - Irritable bowel syndrome with constipation (4) COPD (chronic obstructive pulmonary disease) Priority: Secondary Status: Acute Qualifiers: COPD type: unspecified COPD Qualified Code(s): J44.9 - Chronic obstructive pulmonary disease, unspecified (5) Atrial fibrillation Priority: Secondary Status: Acute Qualifiers: Atrial fibrillation type: unspecified Qualified Code(s): I48.91 - Unspecified atrial fibrillation (6) Dehydration Priority: Primary Status: Acute Hospital course: Ms. Munoz is a 58 year old female with history of IBS, COPD, Afib, chronic constipation, GERD, who presented with nausea and vomiting with associated abd pain. Mostly generalized. a CT abd pelvis in the ED showed large stool burden. She also had diverticulosis but not diverticulitis. She was admitted. There was a signs of dehydration. All that improved with IV fluids. She had an enema. She had a small bowel movement. I saw the patient on 12/08/18 in the morning. She felt a little nauseous but was tolerating clears. I gave the patient the option of staying till she has adequate bowel movement or to be discharged and try to manage at home as she told me this is a chronic issue. She at times goes up to a week without a bowel movement. She elected to go home. Patient was stable and I was ok with discharge. I did give sherri dose of miralax, mag citrate, and senna plus prior to discharge. I also wrote her a script for senna plus 2 pills twice a day for next 5 days. She is already on miralax at home and I advised her to dose it twice for next 5 days as well. She was advised to advance diet as tolerated. She was advised to see her PCP early next week. She was advised to come to the ED if she feels she was worsening. Was discharged 12/08/18 - Time Spent with Patient Total time spent providing and/or coordinating discharge services: Time spent: Greater than 30 minutes - Discharge Medications Prescriptions: New Polyethylene Glycol 3350 [MiraLAX] 17 gm PO BID 30 Days powd.pack Sennosides/Docusate Sodium [Senna Plus] 2 each PO BID 5 Days #20 tablet Continued Ondansetron HCl [Zofran] 4 - 8 mg PO Q8H PRN PRN Reason: Nausea Tiotropium [Spiriva] 1 cap IH DAILY Montelukast [Singulair] 10 mg PO QPM Albuterol Sulfate [Proair Hfa] 2 puff IH Q4H PRN PRN Reason: Shortness Of Breath Pantoprazole Sodium [Protonix] 40 mg PO DAILY Nabumetone [Relafen] 500 mg PO BID Guaifenesin [Mucinex] 600 mg PO BID PRN PRN Reason: Congestion Fluticasone Propionate Nasal [Flonase] 2 spray NS BID Roflumilast [Daliresp] 500 mcg PO DAILY Loratadine [Allergy Relief] 10 mg PO DAILY BuPROPion SR (12 HR) [Wellbutrin SR] 150 mg PO BID Fluticasone/Salmeterol [Advair 250-50 Diskus] 1 puff IH BID Linaclotide [Linzess] 145 mcg PO DAILY Calcium Carbonate [Calcium] 600 mg PO BID Primidone [Mysoline] 50 mg PO BID Home Medications: Albuterol Sulfate [Proair Hfa] 2 puff IH Q4H PRN 05/26/15 [History] BuPROPion SR (12 HR) [Wellbutrin SR] 150 mg PO BID 05/26/15 [History] Fluticasone Propionate Nasal [Flonase] 2 spray NS BID 05/26/15 [History] Fluticasone/Salmeterol [Advair 250-50 Diskus] 1 puff IH BID 05/26/15 [History] Guaifenesin [Mucinex] 600 mg PO BID PRN 05/26/15 [History] Loratadine [Allergy Relief] 10 mg PO DAILY 05/26/15 [History] Montelukast [Singulair] 10 mg PO QPM 05/26/15 [History] Nabumetone [Relafen] 500 mg PO BID 05/26/15 [History] Ondansetron HCl [Zofran] 4 - 8 mg PO Q8H PRN 05/26/15 [History] Pantoprazole Sodium [Protonix] 40 mg PO DAILY 05/26/15 [History] Roflumilast [Daliresp] 500 mcg PO DAILY 05/26/15 [History] Tiotropium [Spiriva] 1 cap IH DAILY 05/26/15 [History] Calcium Carbonate [Calcium] 600 mg PO BID 06/16/16 [History] Linaclotide [Linzess] 145 mcg PO DAILY 06/16/16 [History] Primidone [Mysoline] 50 mg PO BID 12/07/18 [History] Polyethylene Glycol 3350 [MiraLAX] 17 gm PO BID 30 Days powd.pack 12/08/18 [Rx] Sennosides/Docusate Sodium [Senna Plus] 2 each PO BID 5 Days #20 tablet 12/08/18 [Rx] Allergies/Adverse Reactions: Allergy/AdvReac Type Severity Reaction Status Date / Time morphine AdvReac Hypotension Verified 12/07/18 03:23 Date of admission: 12/07/18 06:30 Primary care physician: Fide Painting - Constitutional Vitals: Temp Pulse Resp BP Pulse Ox 98.3 F 62 14 136/78 92 12/08/18 07:00 12/08/18 07:00 12/08/18 08:05 12/08/18 07:00 12/08/18 08:05 Exam: GEN: NAD CVS: RRR. S1, S2, No m/r/g RESP: CTAB ABD: Soft, NT, ND, +BS EXT: No edema. 2+ DP. No rashes NEURO: Nonfocal - Patient Status Disposition: Home, Self-Care Condition: Fair Overall status at discharge: patient is progressing back to baseline - Discharge Instructions Follow Up With: Fide Painting MD [Primary Care Provider] - Additional Instructions: You can advance diet as tolerated. Take Miralax twice a day for at least next 5 days. Take Senna Plus 2 pills twice a day for next 5 days. If symptoms do not improve this weekend, try to see your primary early next week. Come back to the ED if needed - Diet and Activity Activity: increase activity as tolerated Diet: advance to your usual diet
--- NOTE | 2018-12-11 13:10 | Electrocardiograph Report ---
[address] [place], [place] [address] Test Date: 2018-12-07 Pat Name: Miranda Munoz Department: EXAM9 Room: 3A53 Gender: Communications Lead: : 1960 Requested By: Brandon Gallegos Order Number: [id number] Reading MD: Manohar Sultana Measurements Intervals [place] Rate: 43 P: 90 [place]: 232 QRS: 88 QRSD: 95 T: 91 QT: 509 QTc: 431 Interpretive Statements Sinus bradycardia Prolonged [place] interval Anteroseptal infarct, age indeterminate Electronically Signed On 12-11-2018 13:08:53 EDT by Manohar Sultana
== END 2018-12-08 11:08 | disposition home or self-care (01) ==
LOC: EMEROOARM 00:40 → 3ANU 00:40
PROVIDERS: ADMIT Internal Medicine; ATTEND Internal Medicine